=== PATIENT | male | born 1955 | race Caucasian/White ===

== ENCOUNTER 2024-02-03 10:04 | Day surgery (SDC) | payer MEDICARE, BC ==
[2024-01-30 13:48] LABS: BASOPHILS % (AUTO) 0.6 % (0-1); EOSINOPHILS # (AUTO) 0.1 X10'3 (0-0.9); EOSINOPHILS % (AUTO) 2.2 % (0-6); HEMATOCRIT 43.7 % (42.0-52.0); HEMOGLOBIN 14.4 g/dl (14.0-17.9); LYMPHOCYTES # (AUTO) 1.4 X10'3 (1.1-4.8); LYMPHOCYTES % (AUTO) 20.7 % (21-51); MEAN CORPUSCULAR HEMOGLOBIN 26.1 PG (27.0-31.0); MEAN CORPUSCULAR HGB CONC 32.9 g/dL (33.0-36.5); MEAN CORPUSCULAR VOLUME 79.4 FL (78-98); MONOCYTES # (AUTO) 0.5 X10'3 (0-0.9); MONOCYTES % (AUTO) 8.3 % (2-12); NEUTROPHILS # (AUTO) 4.5 X10'3 (1.8-7.7); NEUTROPHILS % (AUTO) 68.2 % (42-75); PLATELET COUNT 170 X10'3 (140-440); WHITE BLOOD COUNT 6.5 X10'3 (4.5-11.0)
[2024-01-30 13:57] LABS: ALBUMIN 3.7 G/DL (3.4-5.0); ANION GAP 7 (8-16); BLOOD UREA NITROGEN 16 MG/DL (7-18); BUN/CREATININE RATIO 19.3 (10.0-20.0); CALCIUM 9.2 MG/DL (8.5-10.1); CHLORIDE 107 MMOL/L (99-107); CREATININE 0.83 MG/DL (0.60-1.10); GLUCOSE 106 MG/DL (70-104); POTASSIUM 3.7 MMOL/L (3.5-5.1); SODIUM 141 MMOL/L (135-145); TOTAL CARBON DIOXIDE 26.6 MMOL/L (24-32); eGFR > 90 ML/MIN
[2024-01-30 14:01] LABS: APTT 33 SECONDS (22-32); PROTHROMBIN TIME 11.2 SECONDS (9.0-12.0)
[2024-01-30 15:58] LABS: PLATELET ESTIMATE NORMAL
[2024-01-30 15:59] LABS: ANISOCYTOSIS 2+; ELLIPTOCYTES FEW; MICROCYTOSIS 1+
[2024-02-03] VITALS (10 sets, daily range): BP systolic 119–137; BP diastolic 72–96; PULSE 51–79; RESP 10–12; TEMP 98.2; O2SAT 94–99
[~2024-02-03] VITALS: Ht 175.3 cm; Wt 159.7 kg
[2024-02-03] MEDS: normal saline 1000ml 1,000 ML IV SCH (10:25)
[2024-02-03] MEDS ORDERED: FLEC50TA28 PO (10:49)
[2024-02-03] MEDS ORDERED: PRAV40TA3 PO (10:49)
[2024-02-03] MEDS ORDERED: FLO0.4C (10:49)
[2024-02-03] MEDS ORDERED: METO-411 PO (10:49)
[2024-02-03] MEDS ORDERED: PANT40TA54 PO (10:49)
[2024-02-03] MEDS ORDERED: LEVE500T PO (10:49)
[2024-02-03] MEDS ORDERED: APIX5TAB3 PO (10:49)
[2024-02-03] MEDS ORDERED: AMLO-139 PO (10:49)
[2024-02-03] MEDS ORDERED: HYDRALAZINE PO (10:49)
[2024-02-03] MEDS ORDERED: BACI1TAB24 (10:50)
[2024-02-03] MEDS ORDERED: OMEG-166 PO (10:50)
[2024-02-03] MEDS ORDERED: MULT-1085 PO (10:51)
[2024-02-03] MEDS ORDERED: ASCO100031 PO (10:51)
[2024-02-03] MEDS ORDERED: CHOL200012 PO (10:52)
[2024-02-03 11:28] LABS: CHOL/HDL RATIO 3.4 (0.00-4.99); CHOLESTEROL 139 MG/DL (0-200); HDL CHOLESTEROL 41 MG/DL (35-60); LDL CHOLESTEROL 88 MG/DL (50-100); TRIGLYCERIDES 81 MG/DL (20-135)
[2024-02-03] MEDS: MIDAZolam 1mg/ml 10ml vial IV ONE (13:44)
[2024-02-03] MEDS: fentaNYL/PF 50MCG/1 ML 2ML syringe IV ONE (13:45)
== END 2024-02-03 14:30 | disposition home or self-care (01) ==
LOC: SSTAY O 10:04
PROVIDERS: ATTEND Student in an Organized Health Care Education/Training Program
DX: I48.91 Unspecified atrial fibrillation (principal); I44.4 Left anterior fascicular block; I10 Essential (primary) hypertension; E78.00 Pure hypercholesterolemia, unspecified; Z79.01 Long term (current) use of anticoagulants; Z79.899 Other long term (current) drug therapy; Z88.8 Allergy status to other drugs, medicaments and biological substances
CPT/HCPCS: 36415; 80048; 80061; 85025; 85610; 85730; 92960; 93005; J2250; J3010; J7030; Z7610; 85008